=== PATIENT | male | born 1950 | race Caucasian/White ===

== ENCOUNTER 2020-04-21 00:12 | Outpatient (CLI) | payer MEDICARE, SELFPAY ==
[2020-04-21 19:01] LABS: SARS-CoV-2 RNA PCR Negative
== END 2020-04-21 00:13 | disposition home or self-care (01) ==
LOC: ANHCOVIDDT 00:12
PROVIDERS: PCP Family Medicine; Visit Provider Internal Medicine Gastroenterology
DX: Z01.812 Encounter for preprocedural laboratory examination (principal); Z20.828 Contact with and (suspected) exposure to other viral communicable diseases
CPT/HCPCS: 87635; C9803; U0003

== ENCOUNTER 2020-04-23 00:55 | Day surgery (SDC) | payer MEDICARE, SELFPAY ==
[2020-04-15 15:48] VITALS: BMI 27.4
[2020-04-23] MEDS: LACTATED RINGERS 1,000 ML 150 ML IV CONT (09:21)
[2020-04-23 09:25] VITALS: BP 133/89; PULSE 80; RESP 16; TEMP 36.5; O2SAT 98; BMI 26.7
--- NOTE | 2020-04-23 09:39 | WPDANESEPPF ---
Anes - Initial Pre Proc Eval Procedure: Operation Date: 04/23/20 10:00 Proposed Procedures p Screening Colonoscopy - Mirza Love MD Date/Time: 04/23/20 09:39 Surgeon: Mirza Love MD Pre Op Diagnosis: neoplasm screening Patient Data Age: 69 Gender: M Height: 5 ft 6 in Weight: 75.2 kg Last Vital Signs Temp 36.5 C 04/23/20 09:25 Pulse 80 04/23/20 09:25 Resp 16 04/23/20 09:25 BP 133/89 04/23/20 09:25 Pulse Ox 98 04/23/20 09:25 Allergies Allergy/AdvReac Type Severity Reaction Status Date / Time cheese Allergy Unknown Unknown Verified 04/23/20 09:08 mold Allergy Unknown Unknown Verified 04/23/20 09:08 NKDA Allergy Unknown Unknown Uncoded 04/23/20 09:08 Home Medications Medication Instructions Recorded Confirmed Type tamsulosin 0.4 mg capsule 0.4 mg PO DAILY #90 cap 05/16/19 04/23/20 Rx calcipotriene 0.005 % topical cream 1 applic TOPICAL DAILY 06/18/19 04/23/20 History halobetasol propionate 0.05 % 1 applic TOPICAL DAILY 06/18/19 04/23/20 History topical cream testosterone 30 mg/actuation (1.5 1 pump TOPICAL DAILY #90 ml 12/10/19 04/23/20 Rx mL) transderm solution metered pump oxybutynin chloride 5 mg tablet 5 mg PO DAILY #90 tablet 02/11/20 04/23/20 Rx esomeprazole magnesium 40 mg 40 mg PO DAILY #90 cap 04/06/20 04/23/20 Rx capsule,delayed release loratadine 10 mg tablet 10 mg PO DAILY #90 tablet 04/09/20 04/23/20 Rx Patient hx anesthesia problems: none Family hx anesthesia problems: none PMFSH Past Medical History Medical History (Updated 04/23/20 @ 09:39 by Param Betancur MD) Dehiscence of surgical wound Overweight Surgical History Surgical History H/O colonoscopy History of cataract surgery Family History Family History Father Diabetes mellitus Mother Hypertension Family history of elevated blood lipids Social History Social History Smoking status: Former smoker Tobacco type: cigarettes Smoking end date: 07/10/02 Alcohol intake: current Substance use type: does not use Living arrangements: with family Gender identity (if verbalized by the patient): Male Spiritual care concerns: No Anes - Eval Final PreProcedure Day of Procedure 04/23/20 09:39 Patient weight: overweight Heart: regular rate and rhythm Lungs: clear to auscultation Airway: Mallampati scale class II Neurological: alert and oriented Last oral intake: >/= 8 hours ASA classification: II Emergent: no Anesthetic plan: proceed Anesthesia type and monitoring: general GIVS and standard monitoring Informed Consent: The patient's anesthetic plan and its attendant risks and benefits were discussed with the patient/family/POA. Questions were solicited and answers provided to the satisfaction of the patient/family/POA.
--- NOTE | 2020-04-23 09:45 | P.CONGI_ITS ---
Assessment and Plan Assessment and plan (1) Encounter for screening colonoscopy: Code(s): Z12.11 - Encounter for screening for malignant neoplasm of colon Status: Acute Assessment and Plan: Patient presents for screening colonoscopy. Been 10 years since last exam. Further recommendations may be given after colonoscopy. GI Consult Note Consult date/time: 04/23/20 09:45 HPI: Julio Lopez is a 69 year old male Seen in evaluation at the request of Dr. Andrea Bojorquez. Patient presents for neoplasia screening colonoscopy. His last exam was 10 years ago. His current weight appetite bowel movements are normal. He denies abdominal pain. He has had no bleeding. His bowel habits are regular. Family history is noncontributory. Review of Systems Review of Systems: All systems reviewed & are unremarkable except as noted in HPI and below PMFSH Past Medical History Medical History (Updated 04/23/20 @ 09:46 by Mirza Love MD) Dehiscence of surgical wound Overweight Surgical History Surgical History H/O colonoscopy History of cataract surgery Family History Family History Father Diabetes mellitus Mother Hypertension Family history of elevated blood lipids Social History Social History Smoking status: Former smoker Tobacco type: cigarettes Smoking end date: 07/10/02 Alcohol intake: current Substance use type: does not use Living arrangements: with family Gender identity (if verbalized by the patient): Male Spiritual care concerns: No Meds Home Medications and Allergies Home Medications Medication Instructions Recorded Confirmed Type tamsulosin 0.4 mg capsule 0.4 mg PO DAILY #90 cap 05/16/19 04/23/20 Rx calcipotriene 0.005 % topical cream 1 applic TOPICAL DAILY 06/18/19 04/23/20 Hi story halobetasol propionate 0.05 % 1 applic TOPICAL DAILY 06/18/19 04/23/20 History topical cream testosterone 30 mg/actuation (1.5 1 pump TOPICAL DAILY #90 ml 12/10/19 04/23/20 Rx mL) transderm solution metered pump oxybutynin chloride 5 mg tablet 5 mg PO DAILY #90 tablet 02/11/20 04/23/20 Rx esomeprazole magnesium 40 mg 40 mg PO DAILY #90 cap 04/06/20 04/23/20 Rx capsule,delayed release loratadine 10 mg tablet 10 mg PO DAILY #90 tablet 04/09/20 04/23/20 Rx Allergies Allergy/AdvReac Type Severity Reaction Status Date / Time cheese Allergy Unknown Unknown Verified 04/23/20 09:08 mold Allergy Unknown Unknown Verified 04/23/20 09:08 NKDA Allergy Unknown Unknown Uncoded 04/23/20 09:08 Vital Signs Vital Signs - 24 hr 04/23/20 09:25 Temperature 97.7 F Pulse Rate 80 Respiratory Rate 16 Blood Pressure 133/89 Pulse Oximetry 98 Exam Narrative: Exam Narrative: Physical exam reveals patient to be alert. Vital signs stable. HEENT exam unremarkable. Lungs are clear to auscultation and percussion. Heart is without murmur or extra sounds. Abdominal exam bowel sounds are present soft nontender with no organomegaly. Digital external rectal exam normal.
[2020-04-23 10:23] VITALS: BP 120/74; PULSE 70; RESP 14; O2SAT 95
[2020-04-23 10:33] VITALS: BP 113/75; PULSE 59; RESP 13; O2SAT 96
[2020-04-23 10:43] VITALS: BP 116/80; PULSE 62; RESP 21; O2SAT 99
== END 2020-04-23 11:03 | disposition home or self-care (01) ==
PROVIDERS: PCP Family Medicine; Visit Provider Internal Medicine Gastroenterology
PROC: 0DJD8ZZ Inspection of Lower Intestinal Tract, Via Natural or Artificial Opening Endoscopic (ICD-10-PCS; CPT 45378; principal; 2020-04-23 10:00)
DX: Z12.11 Encounter for screening for malignant neoplasm of colon (principal); K64.8 Other hemorrhoids; Z87.891 Personal history of nicotine dependence
CPT/HCPCS: G0121; J2704; J7120

== ENCOUNTER → 2021-10-11 14:06 | Outpatient (CLI) | payer MEDICARE, SELFPAY ==
--- NOTE | ~2021-10-11 | XR_ITS ---
EXAM: XR lumbar spine 6V w bending HISTORY: M48.061 - Spinal stenosis, lumbar region without neurogen... COMPARISON: None available FINDINGS: Vascular clips over the left pelvis. 5 nonrib-bearing lumbar-type vertebral bodies with in tact pedicles. Chronic-appearing superior endplate deformity of L1. Exaggerated lumbar lordosis. Mild lateral scoliosis. Grade 1 anterolisthesis of L4 on L5 that reduces slightly in extension. Grade 1 r etrolisthesis of L1 on L2 that reduces slightly in flexion. Multilevel mild disc space narrowing. Mul tilevel facet hypertrophy. No pars defect. Multilevel interspinous narrowing. Incidental note of mult ilevel vertebral body height loss in the lower thoracic spine. IMPRESSION: Dynamic grade 1 anterolistheses of L1 on L2 and L4 on L5. Chronic-appearing superior endplate deformi ty involving L1. Multilevel facet arthropathy. Mild multilevel degenerative disc disease. Reviewed, dictated and finalized at location K. IMPRESSION: Dynamic grade 1 anterolistheses of L1 on L2 and L4 on L5. Chronic-appearing sup erior endplate deformity involving L1. Multilevel facet arthropathy. Mild multi level degenerative disc disease.
== END ==
PROVIDERS: PCP Family Medicine; Visit Provider Family Medicine
DX: M48.061 Spinal stenosis, lumbar region without neurogenic claudication (principal); M54.40 Lumbago with sciatica, unspecified side; M51.36 Other intervertebral disc degeneration, lumbar region
CPT/HCPCS: 72114

== ENCOUNTER 2021-11-08 13:43 | Outpatient (CLI) | payer MEDICARE, SELFPAY ==
--- NOTE | ~2021-11-08 | MR_ITS ---
EXAMINATION: MR lumbar spine wo con DATE: 11/08/2021 14:23 INDICATION: Spinal stenosis, lumbar region without neurogenic claudication. TECHNIQUE: Magnetic resonance imaging (MRI) of the lumbar spine was performed without intravenous con trast. Sequences included sagittal T2-weighted FSE, sagittal T2-weighted FS FSE, sagittal T1-weighted FSE, and axial T2-weighted FSE. COMPARISON: Lumbar spine radiograph 10/11/2021 FINDINGS: There is 16 degrees dextroscoliosis of thoracolumbar spine. There is 3 mm retrolisthesis of T12 on L1 and L1 on L2 and 4 mm anterolisthesis of L4 on L5. There is mild chronic anterior wedging of T11 and T12 vertebral bodies. There is moderately decreased disc height at T10-T11, severely decre ased disc height at T11-T12, and T12-L1, moderately decreased disc height at L1-L2, and mildly decrea sed disc height from L2-L3 through L5-S1. The distal spinal cord signal intensity is normal. The conu s medullaris is at L1. 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 The following disc levels are specifically discu ssed: T12-L1: The disc is bulging. There is severe right and moderate left facet joint osteoarthritis. Ther e is mild right and moderate left neural foraminal stenosis. There is mild central canal stenosis. L1-L2: The disc is bulging. There is severe bilateral facet joint osteoarthritis. There is mild bilat eral neural foraminal stenosis. There is mild central canal stenosis. L2-L3: The disc is bulging and has an annular fissure. There is moderate bilateral facet joint osteoa rthritis. There is mild bilateral neural foraminal stenosis. There is mild central canal stenosis. L3-L4: The disc is bulging. There is moderate bilateral facet joint osteoarthritis. There is mild keven ateral neural foraminal stenosis. There is mild central canal stenosis. L4-L5: The disc does not extend beyond the endplate margin. There is severe bilateral facet joint ost eoarthritis. There is hypertrophy of the ligamentum flavum. There is moderate bilateral neural liliane inal stenosis. There is moderate central canal stenosis. L5-S1: The disc is bulging and has an annular fissure. There is mild bilateral facet joint osteoarthr itis. There is mild bilateral neural foraminal stenosis. There is mild central canal stenosis. IMPRESSION: 1. Moderate lumbar spondylosis and severe lower thoracic spondylosis. 2. Thoracolumbar dextroscoliosis. Reviewed, dictated and finalized at location D.
== END 2021-11-08 13:44 | disposition home or self-care (01) ==
PROVIDERS: PCP Family Medicine; Visit Provider Family Medicine
DX: M48.061 Spinal stenosis, lumbar region without neurogenic claudication (principal); M47.896 Other spondylosis, lumbar region; M47.894 Other spondylosis, thoracic region
CPT/HCPCS: 72148

== ENCOUNTER 2021-12-10 09:02 | Outpatient (CLI) | payer MEDICARE, SELFPAY ==
--- NOTE | 2021-12-10 11:30 | NEURO_ITS ---
PATIENT NUMBER: [id number] IMPRESSION: # Complains of numbness of hands. Not diabetic. # Mild Carpal tunnel right greater than left. # Mild right ulnar neuropathy across the elbow. # Normal needle exam. Nerve Conduction Studies Anti Sensory Summary Table Stim Site NR Peak (ms) P-T Amp (?V) Site1 Site2 Delta-P (ms) Dist (cm) Sb (m/s) Left Median Anti Sensory (2-3nd Digit) Wrist 2.9 53.7 Wrist 2-3nd Digit 2.9 14.0 48 Wrist 2.8 53.4 Wrist 2-3nd Digit 2.9 14.0 48 Right Median Anti Sensory (2-3nd Digit) Wrist 3.9 8.5 Wrist 2-3nd Digit 3.9 14.0 36 Wrist 4.3 19.0 Wrist 2-3nd Digit 3.9 14.0 36 Left Radial Anti Sensory (Base 1st Digit) Wrist 2.0 49.2 Wrist Base 1st Digit 2.0 0.0 Right Radial Anti Sensory (Base 1st Digit) Wrist 2.4 15.4 Wrist Base 1st Digit 2.4 0.0 Left Ulnar Anti Sensory (5th Digit) Wrist 2.2 6.0 Wrist 5th Digit 2.2 14.0 64 Right Ulnar Anti Sensory (5th Digit) Wrist 2.6 36.8 Wrist 5th Digit 2.6 14.0 54 Motor Summary Table Stim Site NR Onset (ms) O-P Amp (mV) Site1 Site2 Delta-0 (ms) Dist (cm) Sb (m/s) Left Median Motor (Abd Poll Brev) Wrist 4.1 2.9 Elbow Wrist 5.7 30.0 53 Elbow 9.8 2.5 Right Median Motor (Abd Poll Brev) Wrist 4.5 2.0 Elbow Wrist 5.8 29.0 50 Elbow 10.3 2.4 Left Ulnar Motor (Abd Dig Minimi) Wrist 3.0 6.6 A Elbow Wrist 6.3 33.0 52 A Elbow 9.3 5.8 B Elbow Wrist 4.5 25.0 56 B Elbow 7.5 4.7 Right Ulnar Motor (Abd Dig Minimi) Wrist 2.7 4.2 A Elbow Wrist 6.6 31.0 47 A Elbow 9.3 3.5 B Elbow Wrist 4.6 21.0 46 B Elbow 7.3 4.0 F Wave Studies NR F-Lat (ms) L-R F-Lat (ms) Left Median (Mrkrs) (Abd Poll Brev) 30.57 2.24 Right Median (Mrkrs) (Abd Poll Brev) 32.81 2.24 Left Ulnar (Mrkrs) (Abd Dig Min) 32.66 4.35 Right Ulnar (Mrkrs) (Abd Dig Min) 28.30 4.35 EMG Side Muscle Nerve Root Ins Act Fibs Amp Dur Recrt Comment Right 1stDorInt Ulnar C8-T1 Nml Nml Nml Nml Nml Right Ext Indicis Radial (Post Int) C7-8 Nml Nml Nml Nml Nml Right Ext Digitorum Radial (Post Int) C7-8 Nml Nml Nml Nml Nml Right BrachioRad Radial C5-6 Nml Nml Nml Nml Nml Right PronatorTeres Median C6-7 Nml Nml Nml Nml Nml Right Abd Poll Brev Median C8-T1 Nml Nml Nml Nml Nml Left 1stDorInt Ulnar C8-T1 Nml Nml Nml Nml Nml Left Ext Indicis Radial (Post Int) C7-8 Nml Nml Nml Nml Nml Left Ext Digitorum Radial (Post Int) C7-8 Nml Nml Nml Nml Nml Left BrachioRad Radial C5-6 Nml Nml Nml Nml Nml Left PronatorTeres Median C6-7 Nml Nml Nml Nml Nml Left Abd Poll Brev Median C8-T1 Nml Nml Nml Nml Nml MTDD
== END 2021-12-10 09:03 | disposition home or self-care (01) ==
PROVIDERS: PCP Family Medicine; Visit Provider Family Medicine
DX: G56.31 Lesion of radial nerve, right upper limb (principal); G56.03 Carpal tunnel syndrome, bilateral upper limbs
CPT/HCPCS: 95886; 95911

== ENCOUNTER → 2022-01-19 08:21 | Outpatient (CLI) | payer MEDICARE, SELFPAY ==
--- NOTE | ~2022-01-19 | XR_ITS ---
XR wrist RT min 3V DATE: 01/19/2022 08:34 INDICATION: Pain and swelling of right wrist. Osteoarthritis. TECHNIQUE: 4 views COMPARISON: 12/21/2003 right forearm FINDINGS: There is severe osteophytic change at the triscaphe and first carpometacarpal joints, inclu ding severe joint space narrowing and prominent spurring. There is osteoarthritic change at the first through third metacarpophalangeal joints and the interpha langeal joint of the first digit and some of the distal interphalangeal joints primarily. There is chondrocalcinosis at the triangular cartilage. No recent fracture or dislocation, periosteal reaction or bone destruction. IMPRESSION: Severe osteoarthritis at the triscaphe and first carpometacarpal joints, with osteoarthri tis at some of the metacarpophalangeal and interphalangeal joints as well Reviewed, dictated and finalized at location A.
--- NOTE | ~2022-01-19 | XR_ITS ---
This report was recreated 02/03/2022. Original report was signed by Dejan Gordon M.D. on 01/19/2022 11:28 CDT XR wrist RT min 3V DATE: 01/19/2022 08:34 INDICATION: Pain and swelling of right wrist. Osteoarthritis. TECHNIQUE: 4 views COMPARISON: 12/21/2003 right forearm FINDINGS: There is severe osteophytic change at the triscaphe and first carpometacarpal joints, including severe joint space narrowing and prominent spurring. There is osteoarthritic change at the first through third metacarpophalangeal joints and the interphalangeal joint of the first digit and some of the distal interphalangeal joints primarily. There is chondrocalcinosis at the triangular cartilage. No recent fracture or dislocation, periosteal reaction or bone destruction. IMPRESSION: Severe osteoarthritis at the triscaphe and first carpometacarpal joints, with osteoarthritis at some of the metacarpophalangeal and interphalangeal joints as well Reviewed, dictated and finalized at location A. Dictated By: Dejan Gordon MD 01/19/22 1125 Signed By: <Electronically signed by Dejan Gordon MD in [place]> 01/19/22 1128 [facility]
== END ==
PROVIDERS: PCP Family Medicine; Visit Provider Plastic Surgery
DX: M19.031 Primary osteoarthritis, right wrist (principal); M11.231 Other chondrocalcinosis, right wrist
CPT/HCPCS: 73110

== ENCOUNTER 2023-01-16 01:19 | Day surgery (SDC) | payer MEDICARE, SELFPAY ==
[2022-12-13 14:26] VITALS: BMI 28.3
[2023-01-16 10:44] VITALS: BP 130/87; PULSE 77; RESP 18; TEMP 36.2; O2SAT 96
[2023-01-16] MEDS: LACTATED RINGERS 1,000 ML 150 ML IV CONT (10:53)
--- NOTE | 2023-01-16 11:16 | PM.HPGS ---
History of Present Illness History of Present Illness Consent: Risks, benefits, and alternatives have been discussed and questions answered. Patient agrees to proceed with procedure. Chief complaint: GERD Narrative: Julio Lopez is a 72 year old male Presents for EGD. Patient has symptoms of heartburn and chronic GE reflux for more than 20 years. Patient currently prescribed Nexium he has been on this medication for or something similar for 20 years. He reports that this well controls his heartburn in acid reflux. Patient's brother recently identified as having cancer of the esophagus. Patient presents today for surveillance examination. Patient denies any his dysphagia. He has no weight loss or bleeding. Family history as stated. Review of Systems Review of Systems: Review of systems noncontributory. 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 Overweight Overweight (BMI 25.0-29.9) Surgical History Surgical History H/O colonoscopy History of cataract surgery Family History Family History Father Diabetes mellitus Mother Hypertension Family history of elevated blood lipids Social History Social History Smoking packs per day: 1 Smoking cigarettes per day: 20.0 Years smoked: 35 Smoking pack-years: 35.00 Smoking status: Former smoker Tobacco type: cigarettes Smoking end date: 07/10/02 Alcohol intake: current Drinks per week: 2 Alcohol use details: GLASSES WINE Substance use: never Substance use type: does not use Living arrangements: with family Gender identity (if verbalized by the patient): Male Spiritual care concerns: No Meds Home Medications and Allergies Home Medications Medication Instructions Recorded Confirmed Type testosterone 30 mg/actuation (1.5 2 pump topical DAILY #180 mL 08/15/22 01/16/23 Rx mL) transderm solution metered pump calcipotriene 0.005 % topical 1 applic topical DAILY #60 grams 11/30/22 01/16/23 Rx cream (Dovonex) meloxicam 15 mg tablet 15 mg PO DAILY #90 tabs 12/06/22 01/16/23 Rx esomeprazole magnesium 40 mg 40 mg PO DAILY 12/13/22 01/16/23 History capsule,delayed release halobetasol propionate 0.05 % 1 applic topical DIRECTED 12/13/22 01/16/23 History topical cream loratadine 10 mg tablet 10 mg PO DAILY 12/13/22 01/16/23 History qmyifqkpxpjx-gudegedp-lddrqn tablet 1 tablet PO DAILY 12/13/22 01/16/23 History oxybutynin chloride 5 mg tablet 5 mg PO DAILY 12/13/22 01/16/23 History tamsulosin 0.4 mg capsule 0.4 mg PO DAILY 12/13/22 01/16/23 History Allergies Allergy/AdvReac Type Severity Reaction Status Date / Time cheese Allergy Intermediate Watery Eye Verified 01/16/23 10:42 mold Allergy Intermediate Watery Eye Verified 01/16/23 10:42 NKDA Allergy Unknown Unknown Uncoded 11/16/22 10:05 Vital Signs Vital Signs - 24 hr 01/16/23 10:44 Temperature 97.2 F L Pulse Rate 77 Respiratory Rate 18 Blood Pressure 130/87 Pulse Oximetry 96 Oxygen Delivery Room Air Exam Narrative: Physical exam reveals patient be alert. Vital signs stable. HEENT exam is unremarkable. Patient is anicteric. Lungs are clear to auscultation and percussion. Heart is without murmur or extra sounds. Abdomen bowel sounds are present soft nontender with no organomegaly. Assessment and Plan Assessment and plan (1) Gastro-esophageal reflux disease with esophagitis: Code(s): K21.0 - Gastro-esophageal reflux disease with esophagitis Status: Acute Assessment and Plan: Patient has a longstanding history of GE reflux disease. Currently felt to be stable taking Nexium 40mg p.o.
--- NOTE | 2023-01-16 11:34 | WPDANESEPPF ---
Anes - Initial Pre Proc Eval Procedure: Operation Date: 01/16/23 11:15 Proposed Procedures p Esophagogastroduodenoscopy - Mirza Love MD Date/Time: 01/16/23 11:34 Surgeon: Mirza Love MD Pre Op Diagnosis: GERD Patient Data Age: 72 Gender: M Height: 1.65 m Weight: 77.2 kg Last Vital Signs Temp 97.2 F L 01/16/23 10:44 Pulse 77 01/16/23 10:44 Resp 18 01/16/23 10:44 BP 130/87 01/16/23 10:44 Pulse Ox 96 01/16/23 10:44 O2 Del Method Room Air 01/16/23 10:44 Allergies Allergy/AdvReac Type Severity Reaction Status Date / Time cheese Allergy Intermediate Watery Eye Verified 01/16/23 10:42 mold Allergy Intermediate Watery Eye Verified 01/16/23 10:42 NKDA Allergy Unknown Unknown Uncoded 11/16/22 10:05 Home Medications Medication Instructions Recorded Confirmed Type testosterone 30 mg/actuation (1.5 2 pump topical DAILY #180 mL 08/15/22 01/16/23 Rx mL) transderm solution metered pump calcipotriene 0.005 % topical 1 applic topical DAILY #60 grams 11/30/22 01/16/23 Rx cream (Dovonex) meloxicam 15 mg tablet 15 mg PO DAILY #90 tabs 12/06/22 01/16/23 Rx esomeprazole magnesium 40 mg 40 mg PO DAILY 12/13/22 01/16/23 History capsule,delayed release halobetasol propionate 0.05 % 1 applic topical DIRECTED 12/13/22 01/16/23 History topical cream loratadine 10 mg tablet 10 mg PO DAILY 12/13/22 01/16/23 History lruzlmyvnpqt-ifodstvi-tizyan tablet 1 tablet PO DAILY 12/13/22 01/16/23 History oxybutynin chloride 5 mg tablet 5 mg PO DAILY 12/13/22 01/16/23 History tamsulosin 0.4 mg capsule 0.4 mg PO DAILY 12/13/22 01/16/23 History Patient hx anesthesia problems: none Family hx anesthesia problems: none Results Review: All pre-operative results and documents have been reviewed as part of the pre-operative evaluation. [facility] Past Medical History Medical History Dehiscence of surgical wound Hearing Loss 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 Overweight Overweight (BMI 25.0-29.9) Surgical History Surgical History H/O colonoscopy History of cataract surgery Family History Family History Father Diabetes mellitus Mother Hypertension Family history of elevated blood lipids Social History Social History Smoking packs per day: 1 Smoking cigarettes per day: 20.0 Years smoked: 35 Smoking pack-years: 35.00 Smoking status: Former smoker Tobacco type: cigarettes Smoking end date: 07/10/02 Alcohol intake: current Drinks per week: 2 Alcohol use details: GLASSES WINE Substance use: never Substance use type: does not use Living arrangements: with family Gender identity (if verbalized by the patient): Male Spiritual care concerns: No Anes - Eval Final PreProcedure Day of Procedure 01/16/23 11:34 Patient weight: overweight Heart: regular rate and rhythm Lungs: clear to auscultation Airway: Mallampati scale class III Neurological: alert and oriented Last oral intake: >/= 8 hours ASA classification: II Emergent: no Anesthetic plan: proceed Anesthesia type and monitoring: general GIVS and standard monitoring Results Review: All pre-operative results and documents have been reviewed as part of the pre-operative evaluation. Informed Consent: The patient's anesthetic plan and its attendant risks and benefits were discussed with the patient/family/POA. Questions were solicited and answers provided to the satisfaction of the patient/family/POA.
[2023-01-16 12:02] VITALS: BP 115/79; PULSE 74; RESP 20; O2SAT 95
[2023-01-16 12:12] VITALS: BP 121/76; PULSE 82; RESP 16; O2SAT 96
[2023-01-16 12:23] VITALS: BP 125/88; PULSE 67; RESP 15; O2SAT 96
== END 2023-01-16 12:36 | disposition home or self-care (01) ==
PROVIDERS: PCP Family Medicine; Visit Provider Internal Medicine Gastroenterology
PROC: 0DJ08ZZ Inspection of Upper Intestinal Tract, Via Natural or Artificial Opening Endoscopic (ICD-10-PCS; CPT 43235; principal; 2023-01-16 11:15)
DX: K21.9 Gastro-esophageal reflux disease without esophagitis (principal); Z87.891 Personal history of nicotine dependence
CPT/HCPCS: 43239; 87081; J2704; J7120

== ENCOUNTER 2023-11-30 08:13 | Outpatient (CLI) | payer MEDICARE, SELFPAY ==
[2023-11-30 13:52] LABS: Basophils Absolute Auto 0.1 K/mm3 (0.0-0.1); Eosinophils Absolute Auto 0.2 K/mm3 (0-0.3); Eosinophils Percent Auto 2.9 % (0-4.4); Hematocrit 50.1 % (42.0-52.0); Hemoglobin 15.9 g/dL (14.0-18.0); Immature Granulocyte Absolute 0.02 K/mm3 (0.00-0.031); Immature Granulocyte Percent A 0.3 % (0-0.5); Lymphocytes Absolute Auto 1.24 K/mm3 (0.9-3.2); Lymphocytes Percent Auto 20.8 % (18.3-44.2); Mean Corpuscular HGB Conc 31.7 g/dl (32-36); Mean Corpuscular Hemoglobin 29.2 pg (26-34); Mean Corpuscular Volume 91.9 fl (80-100); Mean Platelet Volume 10.2 fl (7.4-10.4); Monocytes Absolute Auto 0.7 K/mm3 (0.1-0.6); Monocytes Percent Auto 11.7 % (2.6-8.5); Neutrophils Absolute Auto 3.8 K/mm3 (1.3-6.7); Neutrophils Percent Auto 63.3 % (45.5-73.1); Platelet Count Result 219 k/mm3 (150-375); Red Blood Count 5.45 M/mm3 (4.6-6.20); Red Cell Distribution Width 13.8 % (11.5-14.5)
[2023-11-30 16:30] LABS: Alanine Aminotransferase 33 U/L (6-50); Albumin Level 4.1 g/dL (3.5-5.1); Alkaline Phosphatase 69 U/L (38-126); Anion Gap 8 mmol/L (4-12); Aspartate Amino Transferase 54 U/L (17-59); Bilirubin,Total 0.9 mg/dL (0.2-1.3); Blood Urea Nitrogen 22 mg/dL (9-20); Carbon Dioxide 24 mmol/L (22-30); Chloride 106 mmol/L (98-107); Cholesterol 204 mg/dL (0-200); Estimated Glomerular Filt Rate > 60; Glucose 77 mg/dL (65-110); HDL Direct 46 mg/dL; Potassium 4.5 mmol/L (3.4-5.0); Sodium 138 mmol/L (137-145); Triglycerides 98 mg/dL (<150)
[2023-11-30 16:41] LABS: LDL Cholesterol Direct 124 mg/dL
[2023-11-30 18:58] LABS: Hepatitis C Virus Antibody Negative (Negative)
[2023-12-02 19:48] LABS: Testosterone Total 559 ng/dL (250-1100)
== END 2023-11-30 08:14 | disposition home or self-care (01) ==
PROVIDERS: PCP Family Medicine; Visit Provider Family Medicine
DX: E66.3 Overweight (principal); E23.0 Hypopituitarism; Z11.59 Encounter for screening for other viral diseases
CPT/HCPCS: 36415; 80053; 80061; 84403; 85025; 86803

== ENCOUNTER 2025-06-16 11:25 | Emergency (ER) | payer MEDICARE, SELFPAY ==
[2025-06-16 11:32] VITALS: BP 138/99; PULSE 85; RESP 16; TEMP 36.5; O2SAT 98
--- NOTE | 2025-06-16 11:52 | ED_ITS ---
HPI - General Adult General Chief complaint: Wound/Laceration Stated complaint: Infected Thumb Time Seen by Provider: 06/16/25 11:53 Source: patient, RN notes reviewed and old records reviewed Mode of arrival: ambulatory Limitations: no limitations History of Present Illness HPI narrative: 75-year-old male presents to the [facility] with concerns for an infection to the right thumb around the thumbnail. Not circumferential. Fluctuant area. Patient reports that he has been applying Neosporin to the area and keeping a moisturizing cream on. Onset (ago): day(s) (2) Related Data Home Medications ?Medication ?Instructions ?Recorded ?Confirmed ?Last Taken ?Type sjbkceuweegs-gkamcdoy-riuvnb tablet 1 tablet PO DAILY 12/13/22 06/16/25 Unknown History Allergies Allergy/AdvReac Type Severity Reaction Status Date / Time cheese Allergy Intermediate Watery Eye Verified 06/16/25 11:29 mold Allergy Intermediate Watery Eye Verified 06/16/25 11:29 Milk Containing Products AdvReac Mild Diarrhea Verified 06/16/25 11:29 (Dairy) Review of Systems Review of Systems: All systems reviewed & are unremarkable except as noted in HPI and below Constitutional: Constitutional: Reports no additional constitutional complaints Musculoskeletal: Musculoskeletal: Reports no additional musculoskeletal complaints Integumentary/Breasts: Skin/Breast: Reports as per HPI PMF Past Medical History Medical History 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 Hearing Loss Overweight (BMI 25.0-29.9) Overweight Dehiscence of surgical wound Surgical History Surgical History H/O colonoscopy History of cataract surgery Family History Family History Father Diabetes mellitus Mother Hypertension Family history of elevated blood lipids Sibling Esophageal cancer Social History Social History Smoking packs per day: 1 Smoking cigarettes per day: 20.0 Years smoked: 35 Smoking pack-years: 35.00 Smoking status: Former smoker Tobacco type: cigarettes Smoking end date: 07/10/02 Alcohol intake: current Drinks per week: 2 Alcohol use details: GLASSES WINE Substance use: never Substance use type: does not use Living arrangements: with family Gender identity (if verbalized by the patient): Male Spiritual care concerns: No Comments At the time of my signature, I reviewed and agree with the nursing past medical, surgical, social, and family history. There is no relevant family history pertinent to the patient complaint. Exam Const: General: cooperative, healthy appearing, comfortable, no acute distress, well developed, alert and well nourished Nutritional Appearance: well nourished Orientation/consciousness: patient oriented x3 Limitations: no limitations HENMT: Head: normal to inspection Eyes: General: appearance normal, both eyes and all related structures Alignment and Position: alignment normal Neck: Neck: normal visual inspection, full ROM, no lymphadenopathy and no meningeal signs Chest: Chest palpation & inspection: normal inspection of the chest Resp: Effort & Inspection: normal respiratory effort and able to speak in complete sentences Cardio: Rate: regular rate Skin: General skin exam: normal color and no rashes or lesions noted Other: Fluctuant pustule noted to the site of the nail right thumb. Neuro: General: patient oriented x3, gait normal, moves all extremities and no meningeal signs Cognition (Neuro): normal cognition Speech: normal speech Gait exam (Neuro): Normal gait present Extrem: General: normal to inspection, full ROM, capillary refill normal and normal gait Psych: Appearance: grossly normal and well kempt Mental Status: mental status grossly normal Speech and movement: Normal speech and movement present and Clear speech present Affect: normal affect Attitude: cooperative Course Course Level of Care: Express Care Visit Vital Signs Vital signs: Vital Signs Temperature 97.7 F 06/16/25 11:32 Pulse Rate 85 06/16/25 11:32 Respiratory Rate 16 06/16/25 11:32 Blood Pressure 138/99 H 06/16/25 11:32 Pulse Oximetry 98 06/16/25 11:32 Oxygen Delivery Room Air 06/16/25 11:32 Temperature 97.7 F 06/16/25 11:32 Pulse Rate 85 06/16/25 11:32 Respiratory Rate 16 06/16/25 11:32 Blood Pressure 138/99 H 06/16/25 11:32 Pulse Oximetry 98 06/16/25 11:32 Oxygen Delivery Room Air 06/16/25 11:32 reviewed MDM MDM Narrative Medical decision making narrative: Area had soaked in warm saline and surgical soap. Padded dry. Small puncture made to with 18 gauge needle, collected purulent drainage with culture, will sent to lab. Patient with a pustule to the side of the fingernail, will treat with antibiotic, discussed home [id number] treatments with patient which verbalized understanding. Patient is appropriate for outpatient treatment with close follow-up Discharge instructions reviewed with patient, as well as provided in writing per nursing staff. The instructions also include specific and strict return/GO TO THE ER as well as f/u information. All questions have been answered, and the patient deny any further questions with discharge and discharge plan. Some parts of this dictation were generated by voice recognition software and may contain typographical and/or grammatical inaccuracies. Differential Diagnosis Differential Diagnosis: Differential diagnostic considerations for skin/abscess/foreign body issues include abscess of skin or subcutaneous tissue, viral exanthem, dermatophytosis, urticaria, herpes zoster, allergic reaction to drug, cellulitis, eczema, insect bites, impetigo, contact dermatitis, vasculitis., paronychia Discharge Plan Discharge Clinical Impression: Paronychia Patient Disposition: Home Condition: Stable Instructions: Paronychia (ED) Additional Instructions: DO NOT pick at the area. soak twice daily in warm soapy water with Epson salt for 15-20 minutes. Take all the antibiotics as prescribed. Make sure to keep a dressing in place especially while it is draining Follow up with PCP in 7-10 days For new or worsening symptoms go directly to the emergency room Patient Language: Iranian Prescriptions: New cephalexin 500 mg capsule 500 mg PO QID 7 Days Qty: 28 0RF No Action Centrum Silver Tablet 1 tablet PO DAILY calcipotriene 0.005 % cream 1 applic TOPICAL DAILY Qty: 60 2RF Patient Comments: weekdays fluticasone propionate 50 mcg/actuation spray,suspension See Rx Instructions .ROUTE .COMPLEX Qty: 48 1RF Dose Instruction: INSTILL 2 SPRAYS INTO EACH NOSTRIL DAILY Rx Instructions: INSTILL 2 SPRAYS INTO EACH NOSTRIL DAILY testosterone 30 mg/actuation (1.5 mL) solution in metered pump w/luis angel 2 pump TOPICAL DAILY Qty: 180 3RF Rx Instructions: 1 pump under each arm halobetasol propionate 0.05 % cream 1 applic TOPICAL BID Qty: 50 3RF loratadine 10 mg tablet 10 mg PO DAILY Qty: 90 1RF Rx Instructions: TAKE 1 TABLET BY MOUTH EVERY DAY meloxicam 15 mg tablet 15 mg PO DAILY Qty: 90 1RF tamsulosin 0.4 mg capsule 0.4 mg PO DAILY Qty: 90 1RF Rx Instructions: TAKE 1 CAPSULE BY MOUTH EVERY DAY esomeprazole magnesium 40 mg capsule,delayed release(DR/EC) 40 mg PO DAILY Qty: 90 1RF Rx Instructions: TAKE 1 CAPSULE BY MOUTH DAILY oxybutynin chloride 5 mg tablet 5 mg PO DAILY Qty: 90 1RF Rx Instructions: TAKE 1 TABLET BY MOUTH EVERY DAY Follow-up/Referrals: Andrea Bojorquez MD [Primary Care Provider, Family Practice] - 1 Week Clinical Impression: Paronychia Time of Disposition: 12:19
== END 2025-06-16 12:22 | disposition home or self-care (01) ==
PROVIDERS: Emergency Provider Nurse Practitioner; PCP Family Medicine
DX: L03.011 Cellulitis of right finger (principal); Z87.891 Personal history of nicotine dependence
CPT/HCPCS: 10060; 87070; 87205; 99213; G0463